=== PATIENT | female | born 2000 | race Caucasian/White ===

== ENCOUNTER 2021-11-05 00:21 | Emergency (ER) | payer MEDICAID, OTHER ==
[~2021-11-05] VITALS: Ht 162.6 cm; Wt 60.0 kg
--- NOTE | 2021-11-05 00:35 | PHYS DOC ---
General Adult HPI: HPI: ".. I was opening a copy of [facility] ([employer])... And lid had got down inside the can,,, I could not get it out region to pull it out and I got my finger caught on the lid..." Patient is a 21 year old female who presents with above hx and complaints above hx and complaints of left fourth finger palmar laceration, laceration is approximately 5 cm in length and flap that appears to be avascular. Depth the laceration went to the flexor tendon. Patient was able to flex finger and extend without problem did have distal sensation. Patient denies any history immunosuppression. Did have tetanus vaccination within the year. No history of recent travel. No severe ill contacts. Patient is right-hand dominant. Review of Systems: Review of Systems: Constitutional: Denies fever or chills Eyes: Denies change in visual acuity HENT: Denies nasal congestion or sore throat Respiratory: Denies cough or shortness of breath Cardiovascular: Denies chest pain or edema GI: Denies abdominal pain, nausea, vomiting, bloody stools or diarrhea : Denies dysuria Musculoskeletal: Denies back pain or joint pain Integument: Complains of finger laceration Neurologic: Denies headache, focal weakness or sensory changes Endocrine: Denies polyuria or polydipsia Lymphatic: Denies swollen glands Psychiatric: Denies depression or anxiety Family History: Family History: Noncontributory Current Medications: Current Meds: See nursing for home meds Allergies: Allergies: No known drug allergies Physical Exam: PE: Constitutional: in acute distress, non-toxic appearance. [] HENT: Normocephalic, atraumatic, bilateral external ears normal, oropharynx moist, no oral exudates, nose normal. [] Eyes: PERRLA, EOMI, conjunctiva normal, no discharge. [] Neck: Normal range of motion, no tenderness, supple, no stridor. [] Cardiovascular:Heart rate regular rhythm, no murmur [] Lungs & Thorax: Bilateral breath sounds clear to auscultation [] Abdomen: Bowel sounds normal, soft, no tenderness, no masses, no pulsatile masses. [] Skin: Warm, dry, no erythema, no rash. Laceration as per HPI Back: No tenderness, no CVA tenderness. [] Extremities: No tenderness, no cyanosis, no clubbing, ROM intact, no edema. [] Neurologic: Alert and oriented X 3, normal motor function, normal sensory function, no focal deficits noted. [] Psychologic: Affect normal, judgement normal, mood normal. [] EKG: EKG: [] Radiology/Procedures: Radiology/Procedures: [] Heart Score: C/O Chest Pain: N/A Risk Factors: Risk Factors: DM, Current or recent (<one month) smoker, HTN, HLP, family history of CAD, obesity. Risk Scores: Score 0 - 3: 2.5% MACE over next 6 weeks - Discharge Home Score 4 - 6: 20.3% MACE over next 6 weeks - Admit for Clinical Observation Score 7 - 10: 72.7% MACE over next 6 weeks - Early Invasive Strategies Course & Med Decision Making: Course & Med Decision Making Pertinent Labs and Imaging studies reviewed. (See chart for details) Procedure note-laceration repair- Laceration cleaned with soap and water and then rinsed. Irrigated laceration with normal saline. Betadine applied to the wound edges. . Injected laceration and digital block with 1% lidocaine.. Irrigated laceration range of motion with normal saline. Use 4-0 Ethilon placed 5 mattress sutures. Antibiotic ointment applied. Dressing applied. Patient keep laceration clean and dry. May remove current dressing in 3 days if it does not become wet. Once dressing removed apply Polysporin 4 times a day. Patient take Keflex 500 mg 3 times a day.x 7 days. Then take Diflucan 100 mg daily for 3 days. Warned patient that may be missed tendon laceration and may need follow-up pair. Less monitor closely for infection. Follow-up primary care. Return if any concerns. Tylenol and ibuprofen for pain. Impression: 1. 4th Finger laceration Lt hand - 5 cm [] Dragon Disclaimer: Dragon Disclaimer: This electronic medical record was generated, in whole or in part, using a voice recognition dictation system. Departure Departure: Referrals: PCP,NO (PCP) Scripts Fluconazole (DIFLUCAN) 100 Mg Tablet 100 MG PO DAILY for post antibiotic for 3 Days, #3 TAB Prov: REYES ZAMORANO MD 11/05/21 Cephalexin (KEFLEX) 500 Mg Capsule 500 MG PO TID for laceration, #20 CAP Prov: REYES ZAMORANO MD 11/05/21 Rufino Disclaimer This chart was dictated in whole or in part using Voice Recognition software in a busy, high-work load, and often noisy Emergency Department environment. It may contain unintended and wholly unrecognized errors or omissions. Rufino Disclaimer This chart was dictated in whole or in part using Voice Recognition software in a busy, high-work load, and often noisy Emergency Department environment. It may contain unintended and wholly unrecognized errors or omissions. REYES ZAMORANO MD Nov 05, 2021 00:35
[2021-11-05] MEDS ORDERED: CEPHALEXIN 250 MG CAPSULE PO ONE (01:15)
[2021-11-05] MEDS ORDERED: HYDROcodon/IBUPROFEN 7.5/200MG 1 TAB TABLET PO ONE (01:15)
[2021-11-05 01:16] VITALS: BP 135/84
[2021-11-05] MEDS ORDERED: CEPHALEXIN 250 MG CAPSULE ONE (01:19)
[2021-11-05] MEDS ORDERED: HYDROcodon/IBUPROFEN 7.5/200MG 1 TAB TABLET ONE (01:20)
[2021-11-05] MEDS ORDERED: FLUC100T7 PO (01:20)
[2021-11-05] MEDS ORDERED: CEPH500C PO (01:20)
== END 2021-11-05 01:25 | disposition home or self-care (01) ==
LOC: ER 00:21
DX: S61.215A Laceration without foreign body of left ring finger without damage to nail, initial encounter (principal); X58.XXXA Exposure to other specified factors, initial encounter; Y93.89 Activity, other specified; Y92.89 Other specified places as the place of occurrence of the external cause; Y99.8 Other external cause status
CPT/HCPCS: 12002; 99283-25